=== PATIENT | female | born 1975 | race Caucasian/White ===

== ENCOUNTER 2018-04-02 02:31 | Outpatient (CLI) | payer BC, SELFPAY ==
[2018-04-02 15:53] LABS: FREE T4 1.14 ng/dL (0.76-1.46); TSH 1.15 uIU/mL (0.358-3.74)
[2018-04-02 21:44] LABS: T3,Free 2.3 pg/ml (2.8-5.3)
== END 2018-04-02 02:51 ==
PROVIDERS: PCP Family Medicine; Visit Provider Naturopath
DX: E03.9 Hypothyroidism, unspecified (principal)
CPT/HCPCS: 36415; 84436; 84439; 84443; 84481

== ENCOUNTER 2018-06-14 02:05 | Outpatient (CLI) | payer BC, SELFPAY ==
[2018-06-14 17:14] LABS: T4 8.6 ug/dL (4.5-12.5)
[2018-06-16 20:39] LABS: T3,Free 2.6 pg/ml (2.8-5.3)
== END 2018-06-14 02:25 ==
PROVIDERS: PCP Family Medicine; Visit Provider Naturopath
DX: E03.9 Hypothyroidism, unspecified (principal)
CPT/HCPCS: 36415; 84436; 84439; 84443; 84481

== ENCOUNTER 2019-02-18 11:22 | Outpatient (REF) | payer BC, SELFPAY ==
[2019-02-18 21:27] LABS: FREE T4 1.06 ng/dL (0.76-1.46); TSH 1.34 uIU/mL (0.36-3.74)
[2019-02-19 17:15] LABS: T3,Free 3.1 pg/ml (2.8-5.3)
== END 2019-02-18 11:42 ==
LOC: NCHCN 11:22
PROVIDERS: PCP Family Medicine; Visit Provider Nurse Practitioner Family
DX: E03.9 Hypothyroidism, unspecified (principal); F41.8 Other specified anxiety disorders; F43.10 Post-traumatic stress disorder, unspecified
CPT/HCPCS: 84439; 84443; 84481

== ENCOUNTER 2019-11-06 12:13 | Outpatient (CLI) | payer BC, SELFPAY ==
[2019-11-07 20:04] LABS: COVID-19 RT-PCR UVMMC Result Negative (Negative)
== END 2019-11-06 12:33 ==
PROVIDERS: PCP Family Medicine; Visit Provider Nurse Practitioner Family
DX: Z11.59 Encounter for screening for other viral diseases (principal)
CPT/HCPCS: U0003

== ENCOUNTER 2020-02-16 08:31 | Outpatient (REF) | payer BC, SELFPAY ==
[2020-02-16 21:05] LABS: Hemoglobin A1C 5.3 % (3.8-5.6)
[2020-02-16 21:14] LABS: Anion Gap 9.6 mmol/L (3-11); BUN 15 mg/dL (7-18); C-Reactive Protein 0.19 mg/dL (0.0-0.3); CO2 27.4 mmol/L (21.0-32.0); Calcium 9.2 mg/dL (8.5-10.1); Chloride 104 mmol/L (98-107); FREE T4 1.12 ng/dL (0.76-1.46); Glucose 94 mg/dL (74-106); Potassium 4.1 mmol/L (3.5-5.1); Sodium 141 mmol/L (136-145); TSH 0.81 uIU/mL (0.36-3.74)
[2020-02-16 21:20] LABS: ESR 9 mm/hr (0-20)
[2020-02-17 17:18] LABS: T3,Free 3.2 pg/mL (2.8-5.3)
[2020-02-18 10:11] LABS: Lyme Ab w Rflx to Lyme Confirm Negative (Negative)
[2020-02-18 15:05] LABS: ANA Interpretation Negative (Negative)
[2020-02-19 02:31] LABS: Anaplasma phagocytophilum Negative (Negative); B. miyamotoi PCR Negative (Negative); Babesia divergens/MO-1 Negative (Negative); Babesia duncani Negative (Negative); Babesia microti Negative (Negative); Ehrlichia chaffeensis Negative (Negative); Ehrlichia ewingii/canis Negative (Negative); Ehrlichia muris eauclairensis Negative (Negative)
== END 2020-02-16 08:51 ==
LOC: NCHCN 08:31
PROVIDERS: PCP Family Medicine; Visit Provider Nurse Practitioner Family
DX: E03.9 Hypothyroidism, unspecified (principal); R53.83 Other fatigue
CPT/HCPCS: 80048; 85652; 87798; 83036; 84439; 84443; 84481; 86038; 86140; 86618

== ENCOUNTER 2020-11-14 03:39 | Emergency (ER) | payer BC, SELFPAY ==
[2020-11-14] VITALS (55 sets, daily range): BP systolic 88–128; BP diastolic 53–74; PULSE 64–92; RESP 12–21; TEMP 36.4–36.6; O2SAT 95–100
--- NOTE | 2020-11-14 03:44 | W.ED.GENAD ---
Discharge Plan Disposition Patient Disposition: HOME Condition: Stable Discharge Details Clinical Impression: Serotonin syndrome Primary Care Provider: Ghazal Collazo ED Provider: Abelardo Carter Home Meds and New Rx's Prescriptions: New lorazepam [Ativan] 0.5 mg tablet 0.5 mg PO QHS PRN (Reason: anxiety) Qty: 2 RF: 0 Continued levothyroxine 25 MCG tablet 62 mcg PO DAILY RF: 0 Discontinued escitalopram oxalate [Lexapro] 5 MG tablet 5 mg PO DAILY RF: 0 Discharge Instructions Additional Instructions: Home to rest today. Continue to liberally hydrate with small, frequent sips of fluids. Avoid strenuous activities today. We will ask our care management team to make you a follow-up appointment at [facility]. Return to the ER for any acute concerns Medical Decision Making <Devendra Rutherford MD - Last Filed: 11/14/20 07:23> Patient presenting to the ED with complaints of anxiety, palpitations, not feeling right with associated diarrhea and mild headache. She attributed this to restarting her Lexapro but does not recall having symptoms like this the last time she started taking Lexapro. However, she had been on the supplement 5?HTP before. I am unable to determine the half-life of this supplement but it is basically a precursor to tryptophan and increases serotonin levels. Lexapro is a serotonin reuptake inhibitor. Patient has 2 beat clonus and hyperreflexia suggesting possible mild serotonin syndrome. Vital signs and mental status are normal. For now will get EKG and laboratory studies and observe. I offered patient some lorazepam but she declines at this point. She is agreeable to be observed for period of time. 06:30 - Patient laboratory studies are unremarkable. TSH normal. Chemistries normal. Patient was feeling a little better and resting but now feeling increased anxiety. Has agreed to a dose of Ativan at this point. Remains hemodynamically stable with normal mental status. Lab Data Lab results reviewed: Yes I reviewed the patient's lab results. ECG Data Attestation: I personally reviewed and interpreted this ECG (s) as follows: <Abelardo Carter MD - Last Filed: 11/14/20 09:38> Received signout from Dr. Rutherford. Please see his note regarding details of the initial presentation, exam, plan of care. Patient reexamined after 9 AM, subjectively significant improvement, no tachycardia, well-appearing. She will cease the use of Lexapro and the supplements 5-Ht, we will ask insurance healthcare consultant to arrange a follow-up for her with her primary care provider, Mervat Sanchez. I did offer and she accepted a prescription for 2 0.5 mg Ativan to be used if needed. She is stable and appropriate for discharge home at this time HPI <Devendra Rutherford MD - Last Filed: 11/14/20 07:23> General Mode of arrival: ambulatory. Date/Time Provider Initiated Documentation: 11/14/20 03:44. Limitations to Documentation: no limitations. Information obtained by: patient and RN notes reviewed. HPI Narrative: Patient presents to ED with complaint of anxiety, palpitations, not feeling right with associated headache and diarrhea. Patient had discontinued her Lexapro sometime ago. She was taking a supplement called 5?HTP instead to help with depression and anxiety. Did not seem to be helping and her depression and anxiety seemed to be a little worse for her. She discontinued the supplement maybe about a week ago. She restarted her Lexapro this evening only taking 2.5 mg. Within a couple of hours she began to have anxiety and palpitations and not feeling right. She has been unable to sleep and has had episodes of diarrhea and a mild headache. She denies having any neurologic change, confusion, chest pain, shortness of breath, vomiting, fever. Related Data Home Medications Medication Instructions Recorded Confirmed levothyroxine 62 mcg PO DAILY 11/14/20 11/14/20 lorazepam [Ativan] 0.5 mg PO QHS PRN #2 tab 11/14/20 Previous Rx's Medication Instructions Recorded lorazepam [Ativan] 0.5 mg PO QHS PRN #2 tab 11/14/20 Allergies Allergy/AdvReac Type Severity Reaction Status Date / Time No Known Allergies Allergy Unverified 11/14/20 03:48 Review of Systems <Devendra Rutherford MD - Last Filed: 11/14/20 07:23> Narrative: As documented in HPI otherwise negative as below. Const: no fever, chills, weakness Resp: no cough, SOB, pleuritic pain CV: no CP, diaphoresis, edema, syncope GI: no abdominal pain, nausea, vomiting, diarrhea Neuro: no numbness, focal weakness, confusion PFSH <Devendra Rutherford MD - Last Filed: 11/14/20 07:23> Medical History Adrenal insufficiency Depression History of PCOS Hypothyroid Family History Sister Thyroid cancer Social History Smoking/Tobacco Use Status: Never Smoking risk assessment performed?: Yes Alcohol Intake: current Alcohol Intake frequency: a few times a month Drug use: Never Substance use type: does not use Do you feel safe at home: Yes Do you feel safe in your relationship?: Yes Exam <Devendra Rutherford MD - Last Filed: 11/14/20 07:23> Narrative Exam Narrative: Const: WDWN female in NAD. HEENT: NC/AT. Normal facial exam. Eyes: PERRL and EOMI. No nystagmus. Neck: Supple. Trachea midline. Lungs: Normal respiratory effort. Lungs are clear. Cor: RRR without murmur/gallop. Good radial pulses. GI: Soft. ND. Neuro: A+O x 3. Normal speech, mentation, gait. Cranial nerves II - XII grossly intact. No gross motor or sensory deficit. Hyperreflexic throughout. 2 beats of ankle clonus Ext: No C/C/E. Skin: Warm and dry without rash. Sign Out <Devendra Rutherford MD - Last Filed: 11/14/20 07:23> Sign Out Data: Sign Out Comment: Patient doing much better after the Ativan. Will observe for a couple more hours to see if sustained improvement. If not consider observation admission. Last updated by Devendra Rutherford MD at 11/14/20 08:02
--- NOTE | 2020-11-14 04:00 | RT.EKG_ITS ---
APPROVED REPORT Exam: Resting ECG Reason for Exam: palpitations Patient Location: E HR:67 bpm ECG Measurements Heart Rate 67 AXIS VA 158 P 44 QRSd 90 QRS -22 QT 406 T 3 QTc 430 Conclusion Sinus rhythm...normal P axis, V-rate 60- 99 Low voltage, precordial leads...precordial leads <1.0mV I have reviewed and interpreted ECG and agree with software generated interpretation.
[2020-11-14 04:46] LABS: Abs Immature Grans 0.03 10^3/uL (0.0-0.06); Absolute Basophil Count 0.02 10^3/uL (0.0-0.2); Absolute Eosinophil Count 0.05 10^3/uL (0.0-0.7); Absolute Lymphocyte Count 1.77 10^3/uL (1.2-3.4); Absolute Neutrophil Count 6.54 10^3/uL (1.2-6.7); Basophils % 0.2; Eosinophils % 0.5; HCT 41.2 % (36.0-46.0); HGB 13.6 g/dL (11.2-15.7); Immature Grans % 0.3; Lymphocytes % 19.2; MCH 31.6 pg (27.0-33.0); MCV 95.8 fL (80-95); MPV 10.5 fL (8.0-11.0); Monocytes % 8.7; Neutrophils % 71.1; Nucleated RBC 0 %; Platelet Count 259 10^3/uL (130-400); RDW 12.3 % (11.7-14.6); RDW-SD 43.1 fL; WBC 9.21 10^3/uL (4.4-10.8)
[2020-11-14 04:57] LABS: ALT 26 U/L (14-59); AST 15 U/L (15-37); Albumin 3.7 g/dL (3.4-5.0); Alkaline Phosphatase 106 U/L (46-116); Anion Gap 8.4 mmol/L (3-11); BUN 15 mg/dL (7-18); Bilirubin, Total 0.3 mg/dL (0.2-1.0); CO2 26.6 mmol/L (21.0-32.0); CREATININE 0.8 mg/dL (0.55-1.02); Calcium 8.9 mg/dL (8.5-10.1); Chloride 106 mmol/L (98-107); Glucose 101 mg/dL (74-106); Magnesium 2.1 mg/dL (1.8-2.4); Potassium 3.9 mmol/L (3.5-5.1); Sodium 141 mmol/L (136-145); TSH (W/Ref FT4) 1.42 uIU/mL (0.36-3.74); Total Protein 7.3 g/dL (6.4-8.2)
[2020-11-14] MEDS: Lactated Ringers 1,000 ML 200 ML IV (05:14)
[2020-11-14] MEDS: LORazepam 2 MG/ML VIAL 1 MG IVP (06:55)
--- NOTE | 2020-11-14 09:53 | NUR.NOTE ---
Nursing Note: Referral faxed to PCP for follow up of anxiety/SSRI within 1 week. Autumn Wagner
== END 2020-11-14 09:46 | disposition home or self-care (01) ==
PROVIDERS: Emergency Medicine; Emergency Provider Emergency Medicine; PCP Family Medicine
DX: R00.2 Palpitations (principal); R19.7 Diarrhea, unspecified; R29.2 Abnormal reflex; F41.9 Anxiety disorder, unspecified; T43.225A Adverse effect of selective serotonin reuptake inhibitors, initial encounter
CPT/HCPCS: 80053; 93005; 96361; 96374; 99283; 83735; 84443; 85025; 93010; J2060

== ENCOUNTER 2020-11-16 06:58 | Emergency (ER) | payer BC, SELFPAY ==
--- OUTSIDE RECORDS SUMMARY | 2020-11-16 07:14 | XMS_ITS ---
:1975 Author Care Team Providers Name Role Phone LINO [employer]OURNE [employer]INE INST[employer]ER Primary Care Provider [phone] Allergies Code Code System Name Reaction Severity Status Onset Seasonale (91) ? ? Active ? Medications Name Status Start Date Stop Date ? ? escitalopram 5 mg tablet Active ? Not amisha ilable Take 1 tablet every day by oral route. levothyroxine Active ? Not available THMO Levothyroxine Sodium Active ? Not av ailable zolpidem 5 mg tablet Completed ? 05/20/2020 take 1-2 PO night of sleep study if needed. Problems Name Status Onset Date Source ? Viral Syndrome Active 04/02/2020 ? Multiple Benign Melanocytic Nevi Active 04/02/2020 ? Hypothyroidism Active 04/02/2020 ? Obesity Active 04/02/2020 ? Mixed Anxiety and Depressive Disorder Active 04/02/2020 ? Binge Eating Disorder Active 04/02/2020 ? Allergic Rhinitis Active 04/02/2020 ? Flatulent Dyspepsia Active 04/02/2020 ? Seborrheic Dermatitis Active 04/02/2020 ? Acne Active 04/02/2020 ? Arthritis Active 04/02/2020 ? Neck Pain Active 04/02/2020 ? Low Back Pain Active 04/02/2020 ? Dizziness Active 04/02/2020 ? Fatigue Active 04/02/2020 ? Abnormal Cervical Papanicolaou Smear Active 04/02/2020 ? Panic Disorder Active 04/02/2020 ? Lentiginosis Active 04/02/2020 ? Paroxysmal Nocturnal Dyspnea Active 04/08/2020 ? 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 Procedures None recorded. Results Lab Results None recorded. Past Encounters 05/20/2020 Periodic Leg Movements of Sleep; Pain in Right Knee; Paroxysmal Nocturnal Dyspnea Anisa Loyd PROJECT ARCHITECT: [facility] [employer] [address] [id number], [place]. 04/08/2020 Paroxysmal Nocturnal Dyspnea Anisa Loyd PROJECT ARCHITECT: [facility] [employer] [address], [place]. Social History Tobacco Smoking Status Never Smoker Vaccine List None recorded. Plan of Care Reminders Provider Appointments None ? ? recorded. Lab None ? ? recorded. Referral None ? ? recorded. Procedures None ? ? recorded. Surgeries None ? ? recorded. Imaging None ? ? recorded. Vitals 05/20/2020 02:00PM Office 30 Height Weight BMI 170.18 cm 97.52 kg 33.7 kg/m2 04/08/2020 10:45AM New Patient 45 Height Weight BMI 170.18 cm 97.52 kg 33.7 kg/m2
[2020-11-16 07:16] VITALS: BP 127/74; PULSE 85; RESP 18; O2SAT 96
[2020-11-16 07:37] VITALS: RESP 18
--- NOTE | 2020-11-16 07:48 | W.ED.GENAD ---
Discharge Plan Disposition Patient Disposition: HOME Condition: Good Discharge Details Clinical Impression: Anxiety Primary Care Provider: Ghazal Collazo ED Provider: Nii Valdez Home Meds and New Rx's Prescriptions: Continued levothyroxine 25 MCG tablet 62 mcg PO DAILY RF: 0 lorazepam [Ativan] 0.5 mg tablet 0.5 mg PO QHS PRN (Reason: anxiety) Qty: 2 RF: 0 Discharge Instructions Instructions: Anxiety (ED) Additional Instructions: At this time as we discussed together your symptoms are thankfully inconsistent with serotonin syndrome. Those medications are definitely out of your system at this stage. I do feel that this is a component of your anxiety. Please take the Valium only if needed. As we discussed it is best to speak with your primary care provider about potential long-term anxiolytic options. Please contact your counselor today and follow-up closely with them for continued discussion of your symptomatology. If you notice any worsening of your symptoms, or any new symptoms such as vomiting, diarrhea, fever, chills, shortness of breath, chest pain, numbness, weakness, or fainting , please return immediately to the emergency department for reevaluation. Please follow up with your primary care provider as soon as possible for reassessment and reevaluation. As always, it was a pleasure participating in your medical care today. Referrals: Teresa Sanchez [ [facility] STAFF PHYSICIAN] - Medical Decision Making This is a very pleasant 45-year-old female with a past medical history of thyroid dysfunction, anxiety, who presents today for evaluation of anxiety. Patient was here 4 days ago and was seen and assessed by Dr. Rutherford and Dr. Carter. At that time she had recently started an SSRI, as well as a supplement, both of which seemed to interact with the serotonin pathway, causing symptoms of anxiety, but also on exam clonus, and tachycardia and hypertension. Diagnosis at that time with suspected to be mild serotonin syndrome. She was given Ativan, and observed for an extended period of time. The remainder of her work-up was otherwise benign. She was eventually discharged. She felt well, and then last night she felt a return of the anxiety and panic, she did take an Ativan at 0.5 mg, this did help her sleep but did not resolve her symptoms. In the morning she woke up still feeling anxious, and was worried about recurrence of serotonin syndrome. Aside from this she denies any fever, chills, chest pain, shortness of breath, new medications, alcohol, IV or illicit drug use. She has not taken any of her Lexapro or the supplement since the initial inciting event on Sunday. Patient has no other complaints at this time. No other modifying factors. She denies any homicidal or suicidal ideations. She denies any auditory or visual hallucinations. Physical exam demonstrates no hyperreflexia, no clonus, no other abnormalities otherwise. Vital signs are stable. No tachycardia or significant hypertension. Symptoms are clinically inconsistent with serotonin syndrome, neuroleptic malignant syndrome, hypertensive crisis or TCA overdose. Symptoms at this time are clinically consistent with mild anxiety. No indication for other emergent work-up at this time. I did spend a fair fair bit of time just talking with the patient about what she is feeling and her current symptoms. I do recommend close continued outpatient follow-up with her counselor, her PCP. We will give a single dose of 5 mg Valium for home use as needed. I did discuss with her that this is just a fingertip Band-Aid, not the true treatment. She does state that she already has a plan with her PCP to restart the SSRI at a later time at a very low dose. I do think this is an appropriate outpatient plan. I have extensively reviewed the treatment plan and discharge instructions with the patient. I have addressed all patient concerns at this time. The patient was made aware of what symptoms to monitor for that would warrant a return to the emergency department. Discussed the plan with the patient, they demonstrate verbal understanding and agreement with our assessment and plan at this time. The documentation in this chart was dictated using [employer] dictation software. Please excuse any dictation errors. HPI General Date/Time Provider Initiated Documentation: 11/16/20 07:02. HPI Narrative: This is a very pleasant 45-year-old female with a past medical history of thyroid dysfunction, anxiety, who presents today for evaluation of anxiety. Patient was here 4 days ago and was seen and assessed by Dr. Rutherford and Dr. Carter. At that time she had recently started an SSRI, as well as a supplement, both of which seemed to interact with the serotonin pathway, causing symptoms of anxiety, but also on exam clonus, and tachycardia and hypertension. Diagnosis at that time with suspected to be mild serotonin syndrome. She was given Ativan, and observed for an extended period of time. The remainder of her work-up was otherwise benign. She was eventually discharged. She felt well, and then last night she felt a return of the anxiety and panic, she did take an Ativan at 0.5 mg, this did help her sleep but did not resolve her symptoms. In the morning she woke up still feeling anxious, and was worried about recurrence of serotonin syndrome. Aside from this she denies any fever, chills, chest pain, shortness of breath, new medications, alcohol, IV or illicit drug use. She has not taken any of her Lexapro or the supplement since the initial inciting event on Sunday. Patient has no other complaints at this time. No other modifying factors. She denies any homicidal or suicidal ideations. She denies any auditory or visual hallucinations. Related Data Home Medications Medication Instructions Recorded Confirmed levothyroxine 62 mcg PO DAILY 11/14/20 11/16/20 lorazepam [Ativan] 0.5 mg PO QHS PRN #2 tab 11/14/20 11/16/20 Previous Rx's Medication Instructions Recorded lorazepam [Ativan] 0.5 mg PO QHS PRN #2 tab 11/14/20 Allergies Allergy/AdvReac Type Severity Reaction Status Date / Time No Known Allergies Allergy Unverified 11/16/20 07:36 General Stated Complaint: Anxiety PANFILO: 3 Review of Systems All systems reviewed & are unremarkable except as noted in HPI and below PFSH Medical History Adrenal insufficiency Depression History of PCOS Hypothyroid Family History Sister Thyroid cancer Social History Smoking/Tobacco Use Status: Never Smoking risk assessment performed?: Yes Alcohol Intake: current Alcohol Intake frequency: a few times a month Drug use: Never Substance use type: does not use Do you feel safe at home: Yes Do you feel safe in your relationship?: Yes Exam Narrative Exam Narrative: 1.Const: Well-nourished, Well-developed, appearing stated age 2.Eyes: PERRL, no conjunctival injection, and symmetrical lids. 3.ENT: Atraumatic external nose and ears. Moist MM. Neck: Symmetric, trachea midline, No thyromegaly. 4.CVS: +S1/S2, No murmurs or gallops. Peripheral pulses 2+ and equal in all extremities. Brisk capillary refill in all extremities. 5.RESP: Unlabored respiratory effort. Clear to auscultation bilaterally. No wheezes rales or rhonchi 6.GI: Soft, Nontender/Nondistended, No hepatosplenomegaly. No guarding or rebound. 7.MSK: Normocephalic/Atraumatic, Extremities w/o deformity or ttp No cyanosis or clubbing, Normal movement of all extremities. No clonus, no hyperreflexia. Patellar reflex +2 bilaterally. 8.Skin: Warm, Dry. No rashes or lesions. 9.Neuro: graphic production artist II-XII grossly intact. Sensation grossly intact, no focal neurologic deficits. 10.Psych: (AAO) x3. Appropriate mood and affect, patient is slightly tearful. Course Vital Signs Vital signs: Vital Signs Pulse 85 11/16/20 07:16 Respiratory Rate 18 11/16/20 07:16 Blood Pressure 127/74 11/16/20 07:16 Pulse Oximetry 96 11/16/20 07:16 Temperature Source Skin 11/16/20 07:16 Pulse 85 11/16/20 07:16 Respiratory Rate 18 11/16/20 07:37 Respiratory Effort Non-Labored 11/16/20 07:37 Respiratory Depth Normal 11/16/20 07:37 Respiratory Pattern Normal 11/16/20 07:37 Blood Pressure 127/74 11/16/20 07:16 Blood Pressure Position Sitting 11/16/20 07:16 Pulse Oximetry 96 11/16/20 07:16 Oxygen Delivery Method Room Air 11/16/20 07:16 Oxygen Flow Rate 0 11/16/20 07:16 Pain Level 0 11/16/20 07:16
[2020-11-16] MEDS: diazePAM 5 MG TAB PO (07:58)
== END 2020-11-16 08:01 | disposition home or self-care (01) ==
PROVIDERS: Emergency Provider Student in an Organized Health Care Education/Training Program; PCP Family Medicine
DX: F41.9 Anxiety disorder, unspecified (principal)
CPT/HCPCS: 99283